=== PATIENT | male | born 1985 | race Hispanic/Latino ===

== ENCOUNTER 2016-03-13 14:51 | Emergency (ER) | payer OTHER ==
[~2016-03-13] VITALS: Ht 170.2 cm; Wt 63.5 kg
[~2016-03-13 14:51] MED LIST: FLEXERIL10 MG PO; MOTRIN800 MG PO; PERCOCET 325 MG1 TA2 PO
--- NOTE | 2016-03-13 16:08 | ED INFLUENZA/URI COMPLAINT ---
History of Present Illness General Chief Complaint: General Adult Stated Complaint: COUGH,CONGESTION X 4 DAYS Source: patient Exam Limitations: no limitations Vital Signs & Intake/Output Vital Signs & Intake/Output Vital Signs Date Time Temp Pulse Resp B/P Pulse O2 O2 Flow FiO2 Ox Delivery Rate 03/13 1838 97.3 03/13 183 97.6 92 18 120/71 97 Room Air 03/13 1733 Room Air 03/13 1615 100.4 03/13 1604 100.4 101 22 98/74 97 Room Air ED Intake and Output 03/14 0000 03/13 1200 Intake Total Output Total Balance Patient 140 lb Weight Allergies Coded Allergies: NO KNOWN ALLERGIES (08/30/14) Reconcile Medications Albuterol Sulfate (Proventil Hfa) 90 MCG HFA.AER.AD 2 PUF INH Q4 sob Azithromycin (Zithromax) 250 MG TABLET 1 DP PO AD sinusitis 2 the first day followed by 1 for days 2-5 Benzonatate 200 MG CAPSULE 1 CAP PO TIDPRN cough Triage Note: PT STATSE HE HAS HAD A COUGH FOR 4 DAYS AND HE FEELS LIKE HE HAS A FEVER AND AN EAR INFECTION. PT STATES HE IS COUGHING UP GREEN SPUTUM Triage Nurses Notes Reviewed? yes Onset: Abrupt Duration: day(s): (4), constant, continues in ED Timing: recent history Severity: moderate, severe No Modifying Factors: none HPI: 30-year-old male comes into emergency room for further evaluation of cough, runny nose, congestion, body aches, chills, right-sided back pain in chest pain from coughing. Denies any vomiting. Some yellow mucus production. Fevers and chills at home. Since his been going on for past 3-4 days. (ALETHEA REYES) Past History Travel History Traveled to [place] past 21 day No Medical History Any Pertinent Medical History? see below for history Neurological: NONE EENT: NONE Cardiovascular: NONE Respiratory: NONE Gastrointestinal: NONE Hepatic: NONE Renal: NONE Musculoskeletal: NONE Psychiatric: NONE Endocrine: NONE Blood Disorders: NONE Cancer(s): NONE STEREOPTICIAN/Reproductive: NONE Surgical History Surgical History: LEFT WRIST FX Psychosocial History What is your primary language Mongolian Tobacco Use: Current Daily Use Daily Tobacco Use Amount/Type: => 5 Cigarettes daily ETOH Use: denies use Illicit Drug Use: marijuana Family History Hx Contributory? No (ALETHEA REYES) Review of Systems Review of Systems Constitutional: Reports: see HPI. EENTM: Reports: see HPI. Respiratory: Reports: see HPI. Cardiovascular: Reports: no symptoms. GI: Reports: no symptoms. Genitourinary: Reports: no symptoms. Musculoskeletal: Reports: no symptoms. Skin: Reports: no symptoms. Neurological/Psychological: Reports: no symptoms. Hematologic/Endocrine: Reports: no symptoms. Immunologic/Allergic: Reports: no symptoms. All Other Systems: Reviewed and Negative (ALETHEA REYES) Physical Exam Physical Exam General Appearance: well developed/nourished, alert, awake Head: atraumatic, normal appearance Eyes: Bilateral: normal appearance, EOMI. Ears, Nose, Throat: normal ENT inspection, moist mucous membrane Neck: normal inspection Respiratory: no respiratory distress, rhonchi, wheezing Cardiovascular: regular rate/rhythm Back: normal inspection Extremities: normal inspection, normal range of motion Neurologic/Psych: awake, alert, oriented x 3, normal gait Skin: intact, normal color Core Measures Severe Sepsis Present: No Septic Shock Present: No (ALETHEA REYES) Progress Differential Diagnosis: influenza, meningitis, neutropenia, otitis, pneumonia, pharyngitis, sinusitis Plan of Care: Orders Procedure Date/time Status TROPONIN LEVEL 03/13 1655 Complete COMPREHENSIVE METABOLIC PANEL 03/13 1655 Complete CBC WITHOUT DIFFERENTIAL 03/13 1655 Complete RAPID VIRAL INFLUENZA A 03/13 1607 Complete EKG 03/13 1607 Active Laboratory Tests 03/13/16 1659: Anion Gap 11, Estimated GFR > 60, BUN/Creatinine Ratio 13.8, Glucose 90, Calcium 9.8, Total Bilirubin 0.6, AST 20, ALT 23, Alkaline Phosphatase 80, Troponin I < 0.01, Total Protein 8.2, Albumin 4.5, Globulin 3.7, Albumin/Globulin Ratio 1.2, CBC w Diff NO MAN DIFF REQ, RBC 4.87, MCV 86.3, MCH 29.0, RDW 13.5, MPV 8.8, Gran % 72.6, Lymphocytes % 15.5 L, Monocytes % 11.1 H, Eosinophils % 0.4, Basophils % 0.4, Absolute Granulocytes 10.3 H, Absolute Lymphocytes 2.2, Absolute Monocytes 1.6 H, Absolute Eosinophils 0.1, Absolute Basophils 0.1, PUBS MCHC 33.6 03/13/16 1656: Methadone Screen Cancelled, Barbiturate Screen Cancelled, Ur Phencyclidine Scrn Cancelled, Amphetamines Screen Cancelled, U Benzodiazepines Scrn Cancelled, Urine Cocaine Screen Cancelled, Urine Cannabis Screen Cancelled Diagnostic Imaging: Viewed by Me: Radiology Read. Discussed w/RAD: Radiology Read. Radiology Impression: EXAM TYPE: RAD - XRY-CHEST XRAY, PA AND LATERAL EXAMINATION: XR CHEST CLINICAL INFORMATION: Chest pain and cough COMPARISON: None. TECHNIQUE: PA and lateral views of the chest were obtained. FINDINGS: Cardiomediastinal silhouette is within normal limits. Minor apical pleural thickening. Lungs are otherwise clear. Visualized bony thorax is intact. IMPRESSION: No acute pulmonary disease. DICTATED BY: DARRICK MCCAULEY MD DATE/TIME DICTATED:03/13/161634 JUDICIAL REPORTER:SERENE DATE/TIME TRANSCRIBED:1634 Initial ED EKG: normal intervals, normal sinus rhythm, rate (86), nonspecific ST T wave chg, ST elevation (early repolarization) Comments: 03/13/2016 7:33:56 PM No suspicion for pericarditis. Symptoms are most consistent with bronchitis. Pain is reproducible in the chest. Pain is not positional. Pain is present in chest mostly with cough only. Patient has upper respiratory congestion as well. Symptoms are likely more viral in nature and I feel that the EKG is not related. Troponin normal. Likely early repolarization on EKG. Patient denies any IV drug use. Patient understands and agrees with plan of care. Patient started on oral meds. cased discussed with dr richardson. ([facility]) Departure Departure Disposition: HOME OR SELF CARE Condition: Stable Clinical Impression Primary Impression: Bronchitis Secondary Impressions: Chest wall pain, Sinusitis Referrals: PATIENT HAS NO PRIMARY CARE DR (PCP/Family) DAVID SWANSON,VI Additional Instructions: Taking Z-Oswaldo, albuterol, and Tessalon Perles as prescribed. Rest. Follow-up with primary care Dr. provided. Return if any concerns worsening symptoms. Please go over all results of today's visit with your primary care doctor. Contact your primary care doctor to let them know you were here in the emergency room. There may be nonspecific findings which may not be related to your visit today here in the emergency room but may require further evaluation and chronic monitoring by your primary care doctor. If you had a laceration today the chance of foreign body always remains. You should follow-up with your primary care doctor for recheck in 3-5 days for a wound check. If you had an x-ray done there is a chance that a fracture could have been missed on initial read and you should follow-up with your primary care doctor for repeat x-rays if symptoms persist. If your blood pressure was elevated here in the emergency room please have rechecked by her primary care doctor within the next 48 hours by your primary care doctor. If you were prescribed a narcotic here in the emergency room or any type of controlled substances you're not allowed to drive while taking this medication or operate any type of heavy machinery. Narcotics can make you feel lightheaded dizziness nausea and can cause constipation. You may need to moss picker a stool softener. Thank you for choosing [facility] emergency room. Please return to the emergency room immediately if you have any other concerns worsening of symptoms. Departure Forms: Customer Survey General Discharge Information Prescriptions: Current Visit Scripts Azithromycin (Zithromax) 1 DP PO AD #6 TAB 2 the first day followed by 1 for days 2-5 Albuterol Sulfate (Proventil Hfa) 2 PUF INH Q4 #1 INHAL Benzonatate 1 CAP PO TIDPRN #30 CAP (ALETHEA REYES) PA/INVENTORY CHECKER Co-Sign Statement Statement: ED Attending supervision documentation- [] I saw and evaluated the patient. I have also reviewed all the pertinent lab results and diagnostic results. I agree with the findings and the plan of care as documented in the PA's/INVENTORY CHECKER's documentation. [X] I have reviewed the ED Record and agree with the PA's/INVENTORY CHECKER's documentation. [] Additions or exceptions (if any) to the PAs/INVENTORY CHECKER's note and plan are summarized below: [] (CHA SWANSON,ESTEFANI)
--- NOTE | 2016-03-13 16:40 | RADIOLOGY REPORT ---
EXAMINATION: XR CHEST CLINICAL INFORMATION: Chest pain and cough COMPARISON: None. TECHNIQUE: PA and lateral views of the chest were obtained. FINDINGS: Cardiomediastinal silhouette is within normal limits. Minor apical pleural thickening. Lungs are otherwise clear. Visualized bony thorax is intact. IMPRESSION: No acute pulmonary disease.
[2016-03-13 17:16] LABS: ABSOLUTE BASOPHIL COUNT 0.1 /CUMM (0.0-0.2); ABSOLUTE EOSINOPHIL COUNT 0.1 /CUMM (0.0-0.7); ABSOLUTE GRANULOCYTE CT 10.3 /CUMM (1.4-6.5); ABSOLUTE LYMPH COUNT 2.2 /CUMM (1.2-3.4); ABSOLUTE MONOCYTE COUNT 1.6 /CUMM (0.10-0.60); BASOPHIL % 0.4 % (0.0-2.0); EOSINOPHIL % 0.4 % (0-5); GRANULOCYTE % 72.6 % (42.2-75.2); MEAN CORPUSCULAR HGB CONC 33.6 G/DL (33.0-37.0); MEAN CORPUSCULAR VOLUME 86.3 FL (80.0-94.0); MEAN PLATELET VOLUME 8.8 FL (7.4-10.4); PLATELET COUNT 273 /CUMM (130-400); RBC DISTRIBUTION WIDTH 13.5 % (11.5-14.5); RED BLOOD CELL CT 4.87 /CUMM (4.70-6.10); WHITE BLOOD CELL COUNT 14.2 /CUMM (4.8-10.8)
[2016-03-13] MEDS ORDERED: PROVENTIL HFA6.7 GM INH (18:31)
[2016-03-13] MEDS ORDERED: BENZONATATE200 M1 PO (18:31)
[2016-03-13] MEDS ORDERED: ZITHROMAX250 M2 PO (18:31)
[2016-03-13 18:37] VITALS: BP 120/71
== END 2016-03-13 18:39 ==
LOC: ERH 14:51
PROVIDERS: Physician Assistant Medical
DX: J40 Bronchitis, not specified as acute or chronic (principal); J32.9 Chronic sinusitis, unspecified; R07.89 Other chest pain; F17.210 Nicotine dependence, cigarettes, uncomplicated
CPT/HCPCS: 80307; 87804; 87804-59; 93005; 93010

== ENCOUNTER 2017-03-21 12:44 | Emergency (ER) | payer OTHER ==
[~2017-03-21] VITALS: Ht 170.2 cm; Wt 72.6 kg
[~2017-03-21 12:44] MED LIST changes: +BENZONATATE200 M1 PO; +PROVENTIL HFA6.7 GM INH; +ZITHROMAX250 M2 PO
[2017-03-21 12:55] VITALS: BP 146/94
--- NOTE | 2017-03-21 13:20 | ED INFLUENZA/URI COMPLAINT ---
History of Present Illness General Chief Complaint: General Adult Stated Complaint: "I KEEP COUGHING AND COUGHING" Source: patient Exam Limitations: no limitations Vital Signs & Intake/Output Vital Signs & Intake/Output Vital Signs Date Time Temp Pulse Resp B/P B/P Pulse O2 O2 Flow FiO2 Mean Ox Delivery Rate 03/21 1306 Room Air 03/21 1255 99.6 86 16 146/94 99 Room Air Allergies Coded Allergies: NO KNOWN ALLERGIES (08/30/14) Reconcile Medications Albuterol Sulfate (Proventil Hfa) 90 MCG HFA.AER.AD 2 PUF INH Q4 sob Azithromycin (Zithromax) 250 MG TABLET 1 DP PO AD sinusitis 2 the first day followed by 1 for days 2-5 Benzonatate 200 MG CAPSULE 1 CAP PO TIDPRN cough Oseltamivir Phosphate (Tamiflu) 75 MG CAPSULE 1 CAP PO BID INFLUENZA DISPENSE WRITTEN Oseltamivir Phosphate (Tamiflu) 75 MG CAPSULE 1 CAP PO BID influenza Triage Note: 31M C/O PRODUCTIVE COUGH WITH SOME BLOOD X2 DAYS, NASAL CONGESTION, ABDOMINAL PAIN, DIARRHEA. 1/2 PPD SMOKER AND +MJ. DENIES CP/SOB. LOWGRADE TEMP. +ACHES AND HEADACHE. FLU SWAB OBTAINED AND SENT Triage Nurses Notes Reviewed? yes HPI: Mr. Dominguez is a 31 yo m current smoker with no PMH who presents to the ED with a cough for 2 days associated with chills. Patient reports he has been having a persistent nonproductive cough and 1 episode of coughing up small blood clots. No alleviating or aggravating factors. He also reports his friend is also sick but never seeked medical attention. He reports also feeling nauseated and 1 episode of watery brown diarrhea. He denies dysphagia, odynophagia, lightheadedness, weakness, CP, SOB, palpitations, recent travel. (Briana SWANSON,Katt) Past History Travel History Traveled to [place] past 21 day No Medical History Any Pertinent Medical History? 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 Yes (Katt Warren MD) Review of Systems Review of Systems Constitutional: Reports: see HPI. (Katt Warren MD) Physical Exam Physical Exam General Appearance: mild distress Head: atraumatic, normal appearance Eyes: Bilateral: normal appearance. Ears, Nose, Throat: normal ENT inspection Neck: normal inspection Respiratory: normal breath sounds, lungs clear Cardiovascular: regular rate/rhythm Gastrointestinal: normal bowel sounds Core Measures Sepsis Present: No Sepsis Focused Exam Completed? No (Katt Warren MD) Progress Differential Diagnosis: influenza, pneumonia, pharyngitis Plan of Care: Orders Procedure Date/time Status RAPID VIRAL INFLUENZA A 03/21 125 Complete VIRAL CULTURE 03/21 1259 Active Laboratory Tests 03/21/17 1259: Virus Culture Pending Microbiology 03/21 1301 NASOPHARYN: Influenza Virus A & B Rapid Smear - COMP INFLUENZA TYPE A Initial ED EKG: none (Katt Warren MD) Diagnostic Imaging: Viewed by Me: Radiology Read. Discussed w/RAD: Radiology Read. CXR Impression: PATIENT: COLTON DOMINGUEZ PRESENT AGE: 31 PATIENT ACCOUNT NO: [id number] : 83 LOCATION: [facility] ORDERING PHYSICIAN: Ky Rodríguez DO (TBS) SERVICE DATE: 03/21/17-1254 EXAM TYPE: RAD - XRY- CHEST XRAY, TWO VIEWS EXAMINATION: XR CHEST CLINICAL INFORMATION: Productive cough. COMPARISON: 03/13/2016 TECHNIQUE: 2 views of the chest were obtained. FINDINGS: The lungs are well-inflated and clear. Trachea is midline in position. No evidence of interstitial infiltrate, focal consolidation, mass or pleural effusion. The cardiomediastinal silhouette and hilar structures have normal size and contour. The visualized bones are normal. The upper abdomen is unremarkable. IMPRESSION: No acute cardiopulmonary findings. DICTATED BY: Wolf Urbina MD DATE/TIME DICTATED:03/21/171333 WATER PROOFER:SERENE DATE/TIME TRANSCRIBED:03/21/171333 CONFIDENTIAL, DO NOT COPY WITHOUT APPROPRIATE AUTHORIZATION. <Electronically signed in Other Vendor System> SIGNED BY: Wolf Urbina MD 03/21/171338 (Mariana Hernandez MD) Departure Departure Disposition: HOME OR SELF CARE Condition: Stable Clinical Impression Primary Impression: Influenza A Referrals: Patient Has No Primary Care Dr (PCP/Family) Additional Instructions: If symptoms worsen do not hesitate to return to ED Departure Forms: Customer Survey General Discharge Information Prescriptions: Current Visit Scripts Oseltamivir Phosphate (Tamiflu) 1 CAP PO BID #10 CAP DISPENSE WRITTEN Oseltamivir Phosphate (Tamiflu) 1 CAP PO BID #10 CAP (Katt Warren MD) Resident Co-Sign Statement Statement: ED Attending supervision documentation- [X] I saw and evaluated the patient. I have also reviewed all the pertinent lab results and diagnostic results. I agree with the findings and the plan of care as documented in the Resident's documentation. [X] I have reviewed the ED Record and agree with the Resident's documentation. [] Additions or exceptions (if any) to the Resident's note and plan are summarized below: [] (Mary SWANSON,Mariana)
[2017-03-21] MEDS ORDERED: TAMIFLU75 M1 PO ×2 (13:37→14:30)
--- NOTE | 2017-03-21 13:39 | RADIOLOGY REPORT ---
EXAMINATION: XR CHEST CLINICAL INFORMATION: Productive cough. COMPARISON: 03/13/2016 TECHNIQUE: 2 views of the chest were obtained. FINDINGS: The lungs are well-inflated and clear. Trachea is midline in position. No evidence of interstitial infiltrate, focal consolidation, mass or pleural effusion. The cardiomediastinal silhouette and hilar structures have normal size and contour. The visualized bones are normal. The upper abdomen is unremarkable. IMPRESSION: No acute cardiopulmonary findings.
== END 2017-03-21 13:43 ==
LOC: ERH 12:44
DX: J10.1 Influenza due to other identified influenza virus with other respiratory manifestations (principal); Z72.0 Tobacco use
CPT/HCPCS: 71046; 87804; 87804-59

== ENCOUNTER 2017-10-30 11:12 | Emergency (ER) | payer OTHER ==
[~2017-10-30] VITALS: Ht 170.2 cm; Wt 68.0 kg
[~2017-10-30 11:12] MED LIST changes: +TAMIFLU75 M1 PO
[2017-10-30 11:16] VITALS: BP 112/77
--- NOTE | 2017-10-30 11:45 | ED GENERAL ADULT ---
History of Present Illness General Chief Complaint: Facial or Head Injury Stated Complaint: 3 LUMPS ON BACK OF HEAD PAIN TO LEFT SIDE OF NECK Source: patient Exam Limitations: no limitations Vital Signs & Intake/Output Vital Signs & Intake/Output Vital Signs Date Time Temp Pulse Resp B/P B/P Pulse O2 O2 Flow FiO2 Mean Ox Delivery Rate 10/30 1305 97 Room Air 10/30 1116 96.5 106 15 112/77 97 Room Air Room Air Triage Note: PT TO ED FOR THREE ?SMALL ABCESSES TO BACK OF HEAD X A COUPLE OF DAYS. Triage Nurses Notes Reviewed? yes HPI: This is an otherwise healthy 32-year-old male presenting with abscesses to the scalp. Patient states that he started 7-10 days ago. He has been able to express pus from 1 of them. He tried taking a friend's ampicillin, had no success with this intervention. Denies any systemic symptoms such as fever, chills, nausea, vomiting, lightheadedness, change in appetite. He denies any headache or visual disturbance and has no nuchal rigidity. (Tang Atkinson MD) Allergies Coded Allergies: No Known Allergies (11/03/17) Reconcile Medications Amoxicillin 875 MG TABLET 1 TAB PO BID abscess Famotidine (Pepcid) 40 MG TABLET 1 TAB PO DAILY heartburn Sulfamethoxazole/Trimethoprim (Bactrim Ds Tablet) 800 MG-160 MG TABLET 1 TAB PO BID abscess (Sergo Ponce DO) Past History Travel History Traveled to [place] past 21 day No Medical History Any Pertinent Medical History? 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 No (Tang Atkinson MD) Review of Systems Review of Systems Constitutional: Reports: no symptoms. EENTM: Reports: see HPI. Respiratory: Reports: no symptoms. Cardiovascular: Reports: no symptoms. GI: Reports: no symptoms. Genitourinary: Reports: no symptoms. Musculoskeletal: Reports: no symptoms. Skin: Reports: see HPI. Neurological/Psychological: Reports: no symptoms. Immunologic/Allergic: Reports: no symptoms. Comments Patient complains also of some left-sided cervical adenopathy which is tender. (Tang Atkinson MD) Physical Exam Physical Exam General Appearance: well developed/nourished, no apparent distress, comfortable Head: atraumatic Comments: Well-appearing young male, no acute distress. Patient has 3 discrete abscesses to the posterior scalp, one of which has been drained. He also has reactive adenopathy to the left cervical and supraclavicular region, mobile, mildly tender, nonfluctuant. Cardio Wilson exam within normal limits, abdominal exam normal HEENT exam otherwise negative. No nuchal rigidity. No mastoid tenderness. Core Measures ACS in differential dx? No CVA/TIA Diagnosis: No Sepsis Present: No Sepsis Focused Exam Completed? No (Tang Atkinson MD) Progress Differential Diagnoses I considered the following diagnoses in my evaluation of the patient: Abscess secondary to staph infection, MRSA is most likely. Low suspicion for acute fungal process. Adenopathy is likely reactive secondary to local infection. Low suspicion for acute systemic process or INTERVENTIONAL PHYSICIAN infection or deep space infection. Low suspicion also for metabolic derangement. Plan of Care: For this patient with 3 discrete abscesses, with mild surrounding erythema, will try bedside I&D and course of p.o. Bactrim. Of note patient also complains of intermittent heartburn sensation, no pain at this time with a benign abdominal exam. He requests medication for this. Will prescribe Pepcid, daily for symptom control, advised follow-up with primary doctor. I&D is performed without analgesia with expression of purulent material from 2 abscesses. Wound is cleansed with chlorhexidine, lanced with 11 blade. Pus is expressed. Wound is cleansed again. No deep abscess for a spent of packing. Patient discharged home with return precautions follow-up instructions and wound care information. Initial ED EKG: none (Tang Atkinson MD) Departure Departure Time of Disposition: 1312 Disposition: HOME OR SELF CARE Condition: Stable Clinical Impression Primary Impression: Abscess of scalp Referrals: Patient Has No Primary Care Dr (PCP/Family) Additional Instructions: Thank you for coming to [facility] today. As we discussed, please take the antibiotics as prescribed. It may be helpful to soak the back of your neck in a sitz bath for 30 minutes daily. You can add some Epsom salt to the bath to help make this more effective. Please return if the swelling gets worse or you develop any fever or shortness of breath or headache or chest pain or vomiting. Departure Forms: Customer Survey General Discharge Information Prescriptions: Current Visit Scripts Sulfamethoxazole/Trimethoprim (Bactrim Ds Tablet) 1 TAB PO BID #20 TAB Famotidine (Pepcid) 1 TAB PO DAILY #30 TAB (Tang Atkinson MD) Resident Co-Sign Statement Statement: ED Attending supervision documentation- [] I saw and evaluated the patient. I have also reviewed all the pertinent lab results and diagnostic results. I agree with the findings and the plan of care as documented in the Resident's documentation. [x] I have reviewed the ED Record and agree with the Resident's documentation. [] Additions or exceptions (if any) to the Resident's note and plan are summarized below: [] (Sergo Ponce DO) Critical Care Note Critical Care Note Critical Care Time: non-applicable (Tang Atkinson MD) ED Attending Observation Initial Observation Note: I have seen and personally examined COLTON DOMINGUEZ on 10/30/17 at 1319. I agree with the current emergency department documentation. The disposition (admission or discharge) is uncertain at this time, he needs a period of observation for the following reason(s): The ED Nurse caring for this patient has been personally informed as to what the patient is being observed for. (Tang Atkinson MD)
[2017-10-30] MEDS ORDERED: BACTRIM DS TAB1 EACH PO (13:15)
[2017-10-30] MEDS ORDERED: PEPCID40 M1 PO (13:15)
[2017-11-03] MEDS ORDERED: AMOXICILLIN875 M1 PO (11:14)
== END 2017-10-30 13:32 ==
LOC: ERH 11:12
DX: L02.811 Cutaneous abscess of head [any part, except face] (principal)